=== PATIENT | male | born 1985 | race Caucasian/White ===

== ENCOUNTER 2016-11-22 13:50 | Emergency (ER) | payer OTHER ==
[~2016-11-22] VITALS: Ht 167.6 cm; Wt 95.3 kg
[2016-11-22 13:55] VITALS: BP 142/79
--- NOTE | 2016-11-22 14:32 | NUR ---
CALLED [place] [employer] TO VERIFY PATIENT REPORTED INCIDENT TO [facility].
--- NOTE | 2016-11-22 14:51 | NUR ---
Patient ambulated to bed 04.
--- NOTE | 2016-11-22 14:55 | NUR ---
31/M PRESENT TO ER C/O RIGHT LEG PAIN AND LEFT HIP PAIN x SINCE 11/16/2016; DENIES N/V/D; SKIN IS PINK/WARM/DRY; AAOX4 WITH EVEN AND STEADY GAIT; LUNGS CLEAR BL; HR EVEN AND REGULAR; PT DENIES ANY FEVER, CP, SOB, OR COUGH AT THIS TIME; PATIENT STATES PAIN OF 5/10 AT THIS TIME; VSS; PATIENT POSITIONED FOR COMFORT; HOB ELEVATED; BEDRAILS UP X2; BED DOWN. ER MD MADE AWARE OF PT STATUS.
--- NOTE | 2016-11-22 15:05 | NUR ---
[place] [employer] AT BEDSIDE
--- NOTE | 2016-11-22 15:29 | NUR ---
DR MARQUEZ ASSESSING THE PT AT BEDSIDE
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
--- NOTE | 2016-11-22 16:30 | NUR ---
[place] [employer] AT BEDSIDE INTERVIEWING AAO PT
[2016-11-22 17:01] VITALS: BP 151/96
--- NOTE | 2016-11-22 17:01 | NUR ---
Patient discharged with v/s stable. Written and verbal after care instructions given and explained. Patient alert, oriented and verbalized understanding of instructions. Ambulatory with steady gait. All questions addressed prior to discharge. ID band removed. Patient advised to follow up with PMD. Rx of BACTRIM, MOTRIN given. Patient educated on indication of medication including possible reaction and side effects. Opportunity to ask questions provided and answered.
== END 2016-11-22 17:01 | disposition home or self-care (01) ==
LOC: MED 13:50
DX: S81.801A Unspecified open wound, right lower leg, initial encounter (principal); S71.102A Unspecified open wound, left thigh, initial encounter; I10 Essential (primary) hypertension; W34.00XA Accidental discharge from unspecified firearms or gun, initial encounter; Y93.89 Activity, other specified; Y92.89 Other specified places as the place of occurrence of the external cause; Y99.8 Other external cause status

== ENCOUNTER 2018-06-27 16:10 | Emergency (ER) | payer OTHER ==
[~2018-06-27] VITALS: Ht 165.1 cm; Wt 59.0 kg
[2018-06-27 16:19] VITALS: BP 117/96
[2018-06-27] MEDS ORDERED: ACETAMINOPHEN EXTRA STRENGTH 500 MG TAB PO ONE (16:20)
[2018-06-27] MEDS ORDERED: IBUPROFEN 400 MG TAB PO ONE (16:20)
[2018-06-27] MEDS ORDERED: KETOROLAC 30 MG/ML VIAL IVP ONE (17:45)
[2018-06-27] MEDS ORDERED: ONDANSETRON 4 MG/2 ML VIAL IVP ONE (17:45)
[2018-06-27] MEDS ORDERED: NACL 0.9% 2,000 ML IV SCH (17:45)
[2018-06-27] MEDS ORDERED: cefTRIAXone 1,000 MG in DEXT 5% MINI-BAG PLUS 50 ML IV ONE (17:45)
[2018-06-27] MEDS ORDERED: cefTRIAXone 1,000 MG VIAL ONE (18:02)
[2018-06-27 18:39] LABS: BASOPHILS # (AUTO) 0.1 K/uL (0.00-0.22); BASOPHILS % (AUTO) 0.7 % (0.0-2.0); EOSINOPHILS # (AUTO) 0.1 K/uL (0-0.4); EOSINOPHILS % (AUTO) 0.7 % (0.0-4.0); HEMATOCRIT 45.1 % (36-52); HEMOGLOBIN 14.9 g/dL (12.0-18.0); LYMPHOCYTES # (AUTO) 0.5 K/uL (2.0-11.5); LYMPHOCYTES % (AUTO) 5.4 % (20.5-51.1); MEAN CORPUSCULAR HEMOGLOBIN 29 pg (27-31); MEAN CORPUSCULAR HGB CONC 33 g/dL (33-37); MEAN CORPUSCULAR VOLUME 88.7 fL (80-94); MONOCYTES # (AUTO) 0.5 K/uL (0.8-1.0); MONOCYTES % (AUTO) 5.9 % (1.7-9.3); NEUTROPHILS # (AUTO) 7.7 K/uL (1.8-7.7); NEUTROPHILS % (AUTO) 87.3 % (42.2-75.2); PLATELET COUNT (AUTO) 233 K/uL (140-450); RED BLOOD CELL COUNT(AUTO) 5.08 MIL/uL (4.20-6.10); RED CELL DISTRIBUTION WIDTH 12.9 % (11.6-13.7); WHITE BLOOD COUNT (AUTO) 8.8 K/uL (4.8-10.8)
[2018-06-27] MEDS ORDERED: LEVOFLOXACIN 500 MG/D5W PREMIX 100 ML IV ONE (18:55)
[2018-06-27 19:27] LABS: AMYLASE 43 U/L (25-115); LIPASE 100 U/L (73-393)
[2018-06-27 19:35] LABS: ANION GAP 15.8 (8-16); POTASSIUM 3.8 mmol/L (3.5-5.1)
[2018-06-27 19:36] LABS: CREATININE 1.1 mg/dL (0.7-1.3)
[2018-06-27 19:38] LABS: PROTHROMBIN TIME 10.2 secs (10.8-13.4)
[2018-06-27 19:44] LABS: ALBUMIN 3.3 g/dL (3.4-5.0); TOTAL BILIRUBIN 0.6 mg/dL (0.0-1.0)
[2018-06-27 20:06] LABS: BARBITURATE, URINE NEG. ng/ml (NEG <=200); BENZODIAZEPINE, URINE NEG. ng/mL (NEG <=200); CANNABINOID, URINE NEG. ng/mL (NEG <=50); COCAINE, URINE NEG. ng/mL (NEG <=300); OPIATE, URINE NEG. ng/mL (NEG <=2000); PHENCYCLIDINE SCREEN,URINE NEG. ng/mL (NEG <=25)
[2018-06-27 20:31] LABS: APPEARANCE,URINE Y (CLEAR)
[2018-06-27 20:32] LABS: BILIRUBIN,URINE NEGATIVE (NEGATIVE); BLOOD, URINE NEGATIVE (NEGATIVE); COLOR,URINE C (YELLOW); LEUKOCYTE ESTERASE ,URINE NEGATIVE (NEGATIVE); NITRITE, URINE NEGATIVE (NEGATIVE); PH,URINE 6.5 (5.0-9.0); UGLUCOSE NEGATIVE (NEGATIVE)
[2018-06-27] MEDS ORDERED: MORPHINE SULFATE 2 MG/ML SYR IVP ONE (20:35)
[2018-06-27] MEDS ORDERED: MORPHINE SULFATE 4 MG/ML SYR ONE (21:12)
[2018-06-27 21:51] VITALS: BP 129/69
== END 2018-06-27 21:52 | disposition home or self-care (01) ==
LOC: MED 16:10
DX: J18.9 Pneumonia, unspecified organism (principal); I10 Essential (primary) hypertension
CPT/HCPCS: 36415; 36600; 71045; 80053; 80305; 81003; 82150; 82550; 82803; 83605; 83690; 83880; 84484; 85025; 85610; 85730; 87040; 87086; 87804; 96365; 96367; 96375; 99285; J0696; J1885; J1956; J2270; J2405; J7030; Q0092

== ENCOUNTER 2019-01-12 09:25 | Emergency (ER) | payer OTHER ==
[~2019-01-12] VITALS: Ht 170.2 cm; Wt 95.3 kg
--- NOTE | 2019-01-12 09:34 | NUR ---
PT AMBULATED TO ER BED 08
[2019-01-12 09:36] VITALS: BP 147/85
--- NOTE | 2019-01-12 09:39 | NUR ---
BIB SELF C/O right lower back pain S/P LIFTING HEAVY BRICKS APPROX 90 LBS X TODAY. DENIES DYSURIA. PATIENT STATES PAIN OF 10/10 AT THIS TIME; PATIENT POSITIONED FOR COMFORT; HOB ELEVATED; BEDRAILS UP X1; BED DOWN. ER MD MADE AWARE OF PT STATUS.
--- NOTE | 2019-01-12 09:49 | NUR ---
Patient being evaluated by DR DAILY at bedside.
[2019-01-12] MEDS ORDERED: KETOROLAC 60 MG/2 ML VIAL IM ONE (09:55)
[2019-01-12 10:54] VITALS: BP 129/78
--- NOTE | 2019-01-12 10:54 | NUR ---
Patient discharged with v/s stable. Written and verbal after care instructions given and explained. Patient alert, oriented and verbalized understanding of instructions. Ambulatory with steady gait. All questions addressed prior to discharge. ID band removed. Patient advised to follow up with PMD. Rx of NAPROSYN & NORCO given. Patient educated on indication of medication including possible reaction and side effects. Opportunity to ask questions provided and answered.
== END 2019-01-12 10:54 | disposition home or self-care (01) ==
LOC: MED 09:25
DX: S39.012A Strain of muscle, fascia and tendon of lower back, initial encounter (principal); I10 Essential (primary) hypertension; X50.0XXA Overexertion from strenuous movement or load, initial encounter; Y93.89 Activity, other specified; Y92.009 Unspecified place in unspecified non-institutional (private) residence as the place of occurrence of the external cause; Y99.8 Other external cause status
CPT/HCPCS: 81002; 96372; 99283; J1885

== ENCOUNTER 2019-03-16 19:13 | Emergency (ER) | payer OTHER ==
[~2019-03-16] VITALS: Ht 170.2 cm; Wt 95.3 kg
[2019-03-16 19:28] VITALS: BP 151/91
--- NOTE | 2019-03-16 19:40 | NUR ---
34/M PRESENTED TO ER AMBULATORY. STEADY GAIT. AWAKE ALERT. C/O LEFT MID LOWER BACK PAIN 04/03. STATES HE PAIN STARTED AFTER PICKING UP HEAVY BRICKS ON 03/10/19. SHARP PAIN PROVOKED WHEN BREATHING OR MOVEMENT.EVEN UNLABORED BREATHING. NO SIGNS OF DISTRESS. DID NOT TAKE MEDICATIONS TO ALLEVIATE SYMPTOMS. NKA. WILL CONTINUE TO MONITOR.
--- NOTE | 2019-03-16 19:46 | NUR ---
PT TAKEN TO BED 6
--- NOTE | 2019-03-16 19:54 | NUR ---
DR MARQUEZ AT BEDSIDE.
[2019-03-16] MEDS ORDERED: KETOROLAC 30 MG/ML VIAL IM ONE (20:00)
--- NOTE | 2019-03-16 20:42 | NUR ---
X-Ray at bedside.
[2019-03-16 21:05] VITALS: BP 148/84
--- NOTE | 2019-03-16 21:05 | NUR ---
Patient discharged with v/s stable. Written and verbal after care instructions given and explained. Patient alert, oriented and verbalized understanding of instructions. Ambulatory with steady gait. All questions addressed prior to discharge. ID band removed. Patient advised to follow up with PMD. Rx of MOTRIN AND ROBAXIN given. Patient educated on indication of medication including possible reaction and side effects. Opportunity to ask questions provided and answered.
== END 2019-03-16 21:05 | disposition home or self-care (01) ==
LOC: MED 19:13
DX: S39.012A Strain of muscle, fascia and tendon of lower back, initial encounter (principal); I10 Essential (primary) hypertension; X50.0XXA Overexertion from strenuous movement or load, initial encounter; Y93.89 Activity, other specified; Y92.89 Other specified places as the place of occurrence of the external cause; Y99.8 Other external cause status
CPT/HCPCS: 71045; 96372; 99283; J1885; Q0092

== ENCOUNTER 2019-10-13 07:45 | Emergency (ER) | payer OTHER ==
[~2019-10-13] VITALS: Ht 170.2 cm; Wt 95.3 kg
[2019-10-13 07:54] VITALS: BP 138/88
--- NOTE | 2019-10-13 07:59 | NUR ---
PT TO ER BED 7
--- NOTE | 2019-10-13 08:03 | NUR ---
34 Y/O MALE C/O DRY COUGH, CONGESTION, AND BODY ACHES X 2 DAYS. STATES 8/10 GENERALIZED BODY ACHES. DENIES FEVER/CHILLS. RR EVEN AND UNLABORED. STATES BILATERAL EARS ARE ITCHY, DENIES DRAINAGE. NO N/V/D. TOOK TYLENOL AT 0400 WITH MINIMAL RELIEF OF ACHES. PT SITTING UPRIGHT CALM AND PLEASANT. VSS. MEDHX: DENIES ALLERGIES: NKA
--- NOTE | 2019-10-13 08:14 | NUR ---
DR MITCHELL EXAMINING PT.
[2019-10-13 08:42] VITALS: BP 127/83
--- NOTE | 2019-10-13 08:42 | NUR ---
Patient discharged with v/s stable. Written and verbal after care instructions given and explained. Patient alert, oriented and verbalized understanding of instructions. Ambulatory with steady gait. All questions addressed prior to discharge. ID band removed. Patient advised to follow up with PMD. Rx of TAMIFLU IBUPROFEN, AND CODEINE/PROMETHAZINE given. Patient educated on indication of medication including possible reaction and side effects. Opportunity to ask questions provided and answered.
== END 2019-10-13 08:42 | disposition home or self-care (01) ==
LOC: MED 07:45
DX: R05 Cough (principal); R09.89 Other specified symptoms and signs involving the circulatory and respiratory systems; I10 Essential (primary) hypertension
CPT/HCPCS: 99283

== ENCOUNTER 2020-06-09 05:50 | Emergency (ER) | payer OTHER ==
[~2020-06-09] VITALS: Ht 170.2 cm; Wt 100.8 kg
[2020-06-09 05:57] VITALS: BP 154/104
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
--- NOTE | 2020-06-09 06:18 | NUR ---
RADIOLOGY AT BEDSIDE
[2020-06-09] MEDS ORDERED: KETOROLAC 30 MG/ML VIAL IM ONE (06:40)
--- NOTE | 2020-06-09 06:45 | NUR ---
RIGHT KNEE IMMOBILIZER PLACED. CRUTCH TRAINING PROVIDED WITH RETURN DEMONSTRATION.
--- NOTE | 2020-06-09 07:14 | NUR ---
Patient discharged with v/s stable. Written and verbal after care instructions given and explained. Patient alert, oriented and verbalized understanding of instructions. Ambulatory with steady gait with crutches. All questions addressed prior to discharge. ID band removed. Patient advised to follow up with PMD. Rx of naprosyn given. Patient educated on indication of medication including possible reaction and side effects. Opportunity to ask questions provided and answered.
== END 2020-06-09 07:14 | disposition home or self-care (01) ==
LOC: MED 05:50
DX: S83.91XA Sprain of unspecified site of right knee, initial encounter (principal); I10 Essential (primary) hypertension; X58.XXXA Exposure to other specified factors, initial encounter; Y93.39 Activity, other involving climbing, rappelling and jumping off; Y92.89 Other specified places as the place of occurrence of the external cause; Y99.8 Other external cause status
CPT/HCPCS: 29505; 73562; 96372; 99283; J1885; Q0092

== ENCOUNTER 2020-08-29 05:41 | Emergency (ER) | payer OTHER ==
[~2020-08-29] VITALS: Ht 170.2 cm; Wt 99.8 kg
[2020-08-29 05:45] VITALS: BP 150/90
--- NOTE | 2020-08-29 05:48 | NUR ---
TO LOBBY A/W BED AMBULATORY
--- NOTE | 2020-08-29 06:00 | NUR ---
SEEN AND EXAMINED BY ALYSSA
[2020-08-29] MEDS ORDERED: KETOROLAC 60 MG/2 ML VIAL IM ONE (06:05)
[2020-08-29] MEDS ORDERED: PENICILLIN G BENZATHINE L-A 1.2 MU/2 ML SYR IM ONE (06:05)
--- NOTE | 2020-08-29 06:05 | NUR ---
MEDICATED PER ERMDS ORDER, TOLERATED WELL.
[2020-08-29 06:40] VITALS: BP 132/78
--- NOTE | 2020-08-29 06:40 | NUR ---
Patient discharged with v/s stable. Written and verbal after care instructions given and explained. Patient alert, oriented and verbalized understanding of instructions. Ambulatory with steady gait. All questions addressed prior to discharge. ID band removed. Patient advised to follow up with PMD. Rx of MOTRIN, PREDNISONE given. Patient educated on indication of medication including possible reaction and side effects. Opportunity to ask questions provided and answered.
== END 2020-08-29 06:40 | disposition home or self-care (01) ==
LOC: MED 05:41
DX: J02.0 Streptococcal pharyngitis (principal)
CPT/HCPCS: 96372; 99284; J0561; J1885

== ENCOUNTER 2020-10-17 09:16 | Emergency (ER) | payer OTHER ==
[~2020-10-17] VITALS: Ht 170.2 cm; Wt 103.6 kg
[2020-10-17 09:20] VITALS: BP 159/103
--- NOTE | 2020-10-17 09:27 | NUR ---
AMBULATED TO BED 7
--- NOTE | 2020-10-17 10:01 | NUR ---
Patient discharged with v/s stable. Written and verbal after care instructions given and explained. Patient alert, oriented and verbalized understanding of instructions. Ambulatory with steady gait. All questions addressed prior to discharge. ID band removed. Patient advised to follow up with PMD. Rx of PCN given. Patient educated on indication of medication including possible reaction and side effects. Opportunity to ask questions provided and answered.
== END 2020-10-17 10:01 | disposition home or self-care (01) ==
LOC: MED 09:16
DX: J03.90 Acute tonsillitis, unspecified (principal)
CPT/HCPCS: 99283

== ENCOUNTER 2020-11-16 11:06 | Emergency (ER) | payer OTHER ==
[~2020-11-16] VITALS: Ht 170.2 cm; Wt 102.1 kg
[2020-11-16 11:13] VITALS: BP 130/90
--- NOTE | 2020-11-16 11:18 | NUR ---
PATIENT AMBULATED WITH STEADY GAIT TO BED 8
--- NOTE | 2020-11-16 11:44 | NUR ---
35 Y/O MALE BIB SELF C/O ABDOMINAL PAIN X 4 DAYS. PAIN 10/10, INTERMITTENT, LOCAL, SHARP. DENIES CURRENT STATES NAUSEA/VOMITING/DIARRHEA, STATES CRAMPING PRESENT. NORMOACTIVE BOWEL SOUNDS THROUGHOUT. PT STATES SYMPTOMS BEGAN AFTER EATING AT [employer]; NO PREVIOUS HX OF SYMPTOMS. AO4, BREATHING EVEN AND UNLABORED, SKIN WARM AND DRY. BED IN LOWEST POSITION, LOCKED, X1 SIDERAIL UP. PMH - DENIED NKA
[2020-11-16] MEDS ORDERED: KETOROLAC 60 MG/2 ML VIAL IM ONE (12:10)
[2020-11-16] MEDS ORDERED: IBUP-2213 PO (12:13)
[2020-11-16] MEDS ORDERED: ONDA8TAB87 PO (12:13)
[2020-11-16] MEDS ORDERED: LOPE-143 PO (12:13)
--- NOTE | 2020-11-16 12:33 | NUR ---
Patient discharged with v/s stable. Written and verbal after care instructions given and explained. Patient alert, oriented and verbalized understanding of instructions. Ambulatory with steady gait. All questions addressed prior to discharge. ID band removed. Patient advised to follow up with PMD. Rx of IBUPROFEN, ONDANSETRON, AND LOPERAMIDE given. Patient educated on indication of medication including possible reaction and side effects. Opportunity to ask questions provided and answered.
[2020-11-16 12:35] VITALS: BP 130/90
== END 2020-11-16 12:33 | disposition home or self-care (01) ==
LOC: MED 11:06
DX: R10.13 Epigastric pain (principal); R19.7 Diarrhea, unspecified
CPT/HCPCS: 96372; 99283; J1885

== ENCOUNTER 2021-05-08 07:39 | Emergency (ER) | payer OTHER ==
[~2021-05-08] VITALS: Ht 170.2 cm; Wt 95.3 kg
[~2021-05-08 07:39] MED LIST: IBUP-2213 PO; LOPE-143 PO; ONDA8TAB87 PO
[2021-05-08 07:53] VITALS: BP 163/97
--- NOTE | 2021-05-08 07:55 | NUR ---
TENT 1.
--- NOTE | 2021-05-08 08:27 | NUR ---
C/O 8/10 R KNEE PAIN & SWELLING X 5 DAYS. DENIES RECENTLY TRAUMA/INJURY. PMH: DENIES
[2021-05-08] MEDS ORDERED: ACET-2619 PO (08:44)
[2021-05-08] MEDS ORDERED: IBUP-2213 PO (08:44)
--- NOTE | 2021-05-08 08:56 | NUR ---
PT HAD SPLINT & CRUTCHES AT HOME.
[2021-05-08 08:58] VITALS: BP 163/97
--- NOTE | 2021-05-08 08:58 | NUR ---
Patient discharged with v/s stable. Written and verbal after care instructions given and explained. Patient alert, oriented and verbalized understanding of instructions. Ambulatory with . All questions addressed prior to discharge. ID band removed. Patient advised to follow up with PMD. Rx of TYLENOL &IBUPROFEN given. Patient educated on indication of medication including possible reaction and side effects. Opportunity to ask questions provided and answered.
== END 2021-05-08 08:58 | disposition home or self-care (01) ==
LOC: MED 07:39
DX: M25.561 Pain in right knee (principal); Z79.1 Long term (current) use of non-steroidal anti-inflammatories (NSAID); Z79.899 Other long term (current) drug therapy
CPT/HCPCS: 99282

== ENCOUNTER 2021-06-19 09:32 | Emergency (ER) | payer OTHER ==
[~2021-06-19] VITALS: Ht 170.2 cm; Wt 95.3 kg
[~2021-06-19 09:32] MED LIST changes: +ACET-2619 PO
[2021-06-19 10:05] VITALS: BP 151/92
--- NOTE | 2021-06-19 10:05 | NUR ---
TENT 2
--- NOTE | 2021-06-19 10:07 | NUR ---
BIB SELF C/O 05/04 RIGHT EAR PAIN, SORE THROAT X 2DAYS. DENIES N/V/D; SKIN IS PINK/WARM/DRY; AAOX4 WITH EVEN AND STEADY GAIT; LUNGS CLEAR BL; HR EVEN AND REGULAR; PT DENIES ANY FEVER, CP, SOB, OR COUGH AT THIS TIME.
[2021-06-19] MEDS ORDERED: IBUP-2213 PO (10:53)
[2021-06-19] MEDS ORDERED: FLONAS NS (10:53)
--- NOTE | 2021-06-19 10:58 | NUR ---
Note radha in EDM - 06/19/21 at 1112 by MED1 Patient discharged with v/s stable. Written and verbal after care instructions given and explained. Patient alert, oriented and verbalized understanding of instructions. Ambulatory with steady gait. All questions addressed prior to discharge. ID band removed. Patient advised to follow up with PMD. Rx of FLONASE NASAL & IBUPROFEN given. Patient educated on indication of medication including possible reaction and side effects. Opportunity to ask questions provided and answered.
[2021-06-19 11:11] VITALS: BP 134/86
--- NOTE | 2021-06-19 11:11 | NUR ---
Patient discharged with v/s stable. Written and verbal after care instructions given and explained. Patient alert, oriented and verbalized understanding of instructions. Ambulatory with steady gait. All questions addressed prior to discharge. ID band removed. Patient advised to follow up with PMD. Rx of FLONASE NASAL & IBUPROFEN given. Patient educated on indication of medication including possible reaction and side effects. Opportunity to ask questions provided and answered.
== END 2021-06-19 11:11 | disposition home or self-care (01) ==
LOC: MED 09:32
DX: R07.0 Pain in throat (principal); H92.01 Otalgia, right ear
CPT/HCPCS: 99283

== ENCOUNTER 2021-07-25 07:36 | Emergency (ER) | payer OTHER, SELFPAY ==
[~2021-07-25] VITALS: Ht 170.2 cm; Wt 95.3 kg
[~2021-07-25 07:36] MED LIST changes: +FLONAS NS
[2021-07-25 07:55] VITALS: BP 147/100
--- NOTE | 2021-07-25 08:05 | NUR ---
PT C/O SORE THROAT AND HEADACHE X3 DAYS. DENIES SOB.
--- NOTE | 2021-07-25 08:06 | NUR ---
DR CAMPBELL AT BEDSIDE
--- NOTE | 2021-07-25 08:27 | NUR ---
Patient discharged with v/s stable. Written and verbal after care instructions given and explained. Patient verbalized understanding. Ambulatory with steady gait. All questions addressed prior to discharge. Advised to follow up with PMD.
== END 2021-07-25 08:27 | disposition home or self-care (01) ==
LOC: MED 07:36
DX: J06.9 Acute upper respiratory infection, unspecified (principal)
CPT/HCPCS: 99283

== ENCOUNTER 2022-02-08 06:58 | Emergency (ER) | payer OTHER ==
[~2022-02-08] VITALS: Ht 170.2 cm; Wt 96.6 kg
[2022-02-08 07:03] VITALS: BP 138/91
--- NOTE | 2022-02-08 07:15 | NUR ---
PT AMBULATED TO BED 08.
--- NOTE | 2022-02-08 07:23 | NUR ---
Dr. Randolph evaluating patient at bedside.
--- NOTE | 2022-02-08 07:59 | NUR ---
36 y/o male bib self with c/o right ankle pain. Patient said "he twisted his ankle and felt it pop." Patient is ambulating with crutches. Patient is complaining of pain 05/04. Medical History: Denies NKDA
[2022-02-08] MEDS ORDERED: KETOROLAC 30 MG/ML VIAL IM ONE (08:05)
[2022-02-08 08:50] VITALS: BP 142/85
--- NOTE | 2022-02-08 08:51 | NUR ---
Patient discharged with v/s stable. Written and verbal after care instructions given. Patient verbalized understanding. Ambulatory with crutches steady gait. All questions addressed prior to discharge. Advised to follow up with PMD.
--- NOTE | 2022-02-08 09:14 | NUR ---
The patient's care was reviewed and supervised by Maribell Killian, RN, RN.
== END 2022-02-08 08:51 | disposition home or self-care (01) ==
LOC: MED 06:58
DX: S93.401A Sprain of unspecified ligament of right ankle, initial encounter (principal); W18.39XA Other fall on same level, initial encounter; Y92.89 Other specified places as the place of occurrence of the external cause; Y93.89 Activity, other specified; Y99.8 Other external cause status
CPT/HCPCS: 73610; 96372; 99283; J1885; Q0092

== ENCOUNTER 2022-04-22 16:05 | Emergency (ER) | payer OTHER ==
[~2022-04-22] VITALS: Ht 170.2 cm; Wt 122.5 kg
[2022-04-22 16:09] VITALS: BP 145/94
--- NOTE | 2022-04-22 17:30 | NUR ---
RECEIVED CALL FROM ER ADMITTING THAT PT LEFT. PATIENT LEFT WITHOUT BEING SEEN BY DR. GARCIA. NO FURTHER CARE PROVIDED FOR PATIENT.
== END 2022-04-22 17:30 | disposition left against medical advice (07) ==
LOC: MED 16:05
DX: R07.9 Chest pain, unspecified (principal); Z53.21 Procedure and treatment not carried out due to patient leaving prior to being seen by health care provider
CPT/HCPCS: 93005

== ENCOUNTER 2022-04-27 08:53 | Emergency (ER) | payer OTHER ==
[~2022-04-27] VITALS: Ht 170.2 cm; Wt 95.0 kg
[2022-04-27 09:10] VITALS: BP 157/102
--- NOTE | 2022-04-27 09:30 | NUR ---
SIN AT BEDSIDE FOR EVALUATION
--- NOTE | 2022-04-27 09:35 | NUR ---
37YO MALE PT C/O SORE THROAT, HEADACHE AND EAR PAIN X3DAYS. PT PRESENTS WITH NON PRODUCTIVE COUGH , MILD RELIEF AFTER TYLENOL. THROAT AND EARS PRESENT CLEAR. PT WAS SEEN IN ER ON FRIDAY FOR CHEST PAIN - LWBS. STATES EPISODES OF SHARP 7/10 CHEST PAIN W/ OCCASIONAL NUMBING IN L ARM, DENIES AT THIS TIME. DENIES N/V/D, FEVER, CHILLS OR SOB.DENIES SEEING PCP AND EXPRESSED CONCERN OF CARDIAC FAMILY HX. PT AAOX4, RESPIRATIONS EVEN AND UNLABORED. PT ON SOFTWARE TEAM LEADER, BED AT LOWEST POSITION, BED RAILS UP X1. HX: HTN, DM NKA
[2022-04-27] MEDS ORDERED: IBUPROFEN 800 MG TAB PO ONE (09:40)
[2022-04-27] MEDS ORDERED: DEXAMETHASONE 4 MG/ML VIAL PO ONE (09:40)
--- NOTE | 2022-04-27 09:50 | NUR ---
pt swabbed for covid(estefania) and strep. handed to medical laboratory specialist
--- NOTE | 2022-04-27 10:16 | NUR ---
XRAY AT BEDSIDE
[2022-04-27 10:24] LABS: BASOPHILS # (AUTO) 0.1 K/uL (0.00-0.22); BASOPHILS % (AUTO) 0.8 % (0.0-2.0); EOSINOPHILS # (AUTO) 0.2 K/uL (0-0.4); EOSINOPHILS % (AUTO) 2.5 % (0.0-4.0); HEMATOCRIT 47.2 % (36-52); LYMPHOCYTES # (AUTO) 1.4 K/uL (2.0-11.5); LYMPHOCYTES % (AUTO) 19.6 % (20.5-51.1); MEAN CORPUSCULAR HEMOGLOBIN 30 pg (27-31); MEAN CORPUSCULAR HGB CONC 34 g/dL (33-37); MEAN CORPUSCULAR VOLUME 88.9 fL (80-94); MONOCYTES # (AUTO) 0.7 K/uL (0.8-1.0); MONOCYTES % (AUTO) 10.2 % (1.7-9.3); NEUTROPHILS # (AUTO) 4.6 K/uL (1.8-7.7); NEUTROPHILS % (AUTO) 66.9 % (42.2-75.2); PLATELET COUNT (AUTO) 261 K/uL (140-450); RED BLOOD CELL COUNT(AUTO) 5.31 MIL/uL (4.20-6.10); WHITE BLOOD COUNT (AUTO) 6.9 K/uL (4.8-10.8)
[2022-04-27 10:47] LABS: ALBUMIN 3.9 g/dL (3.4-5.0); ANION GAP 10.2 (8-16); ASPARTATE AMINOTRANSFERASE 17 U/L (15-37); CARBON DIOXIDE 29.9 mmol/L (21-32); CHLORIDE 104 mmol/L (98-107); CREATININE 0.9 mg/dL (0.6-1.3); GFR ARICAN-AMERICAN 121 mL/min (>90); GLUCOSE 94 mg/dL (74-106); POTASSIUM 4.1 mmol/L (3.5-5.1); SODIUM SERUM 140 mmol/L (136-145); TOTAL BILIRUBIN 0.7 mg/dL (0.0-1.0); UREA NITROGEN, BLOOD 13 mg/dL (7-18)
[2022-04-27 11:22] VITALS: BP 126/82
--- NOTE | 2022-04-27 12:07 | NUR ---
Patient discharged with v/s stable. Written and verbal after care instructions FOR VIRAL ILLNESS given and explained. Patient verbalized understanding. Ambulatory with steady gait. All questions addressed prior to discharge. Advised to follow up with PMD.
--- NOTE | 2022-04-27 12:16 | NUR ---
The patient's care was reviewed and supervised by ED Agency Nurse 9, RN, RN.
== END 2022-04-27 12:07 | disposition home or self-care (01) ==
LOC: MED 08:53
DX: B34.9 Viral infection, unspecified (principal); Z20.822 Contact with and (suspected) exposure to COVID-19; J02.9 Acute pharyngitis, unspecified; R03.0 Elevated blood-pressure reading, without diagnosis of hypertension; Z79.899 Other long term (current) drug therapy
CPT/HCPCS: 36415; 71045; 80053; 84484; 85025; 87081; 87426; 93005; 99285; J1100; Q0092

== ENCOUNTER 2022-08-10 14:52 | Emergency (ER) | payer OTHER ==
[~2022-08-10] VITALS: Ht 170.2 cm; Wt 98.0 kg
[2022-08-10 15:13] VITALS: BP 150/92
--- NOTE | 2022-08-10 15:20 | NUR ---
COVID, FLU SWABS DONE.
--- NOTE | 2022-08-10 15:22 | NUR ---
BIB SELF C/O SORE THROAT, COUGH, RUNNY NOSE X YESTERDAY. COVID TESTED NEGATIVE YESTERDAY.
[2022-08-10] MEDS ORDERED: PENI500T20 PO (15:25)
[2022-08-10] MEDS ORDERED: PRED20TA5 PO (15:25)
[2022-08-10] MEDS ORDERED: IBUP-2213 PO (15:25)
--- NOTE | 2022-08-10 15:40 | NUR ---
Patient discharged with v/s stable. Written and verbal after care instructions given and explained. Patient alert, oriented and verbalized understanding of instructions. Ambulatory with steady gait. All questions addressed prior to discharge. ID band removed. Patient advised to follow up with PMD. Rx of PENICILLIN, MOTRIN given. Patient educated on indication of medication including possible reaction and side effects. Opportunity to ask questions provided and answered.
== END 2022-08-10 15:40 | disposition home or self-care (01) ==
LOC: MED 14:52
DX: J02.0 Streptococcal pharyngitis (principal); Z20.822 Contact with and (suspected) exposure to COVID-19; Z79.899 Other long term (current) drug therapy
CPT/HCPCS: 99283

== ENCOUNTER 2022-11-01 05:05 | Emergency (ER) | payer OTHER ==
[~2022-11-01] VITALS: Ht 170.2 cm; Wt 96.2 kg
[~2022-11-01 05:05] MED LIST changes: +PENI500T20 PO; +PRED20TA5 PO
[2022-11-01 05:10] VITALS: BP 143/90
--- NOTE | 2022-11-01 05:10 | NUR ---
TO LOBBY A/W BED AMBULATORY
--- NOTE | 2022-11-01 05:20 | NUR ---
PT RC'D IN BED 6. AWAITING ORDERS.
--- NOTE | 2022-11-01 05:25 | NUR ---
PT ASSESSMENT DONE AT BEDSIDE 6. PT STATES THAT HE HAS HAD A WORSENING SORE THROAT FOR THE LAST 3 DAYS. PT STATES THAT YESTERDAY HE LOST HIS VOICE FELT THE NEED TO COME IN. AWAITING ORDERS.
[2022-11-01] MEDS ORDERED: DEXAMETHASONE 10 MG/ML VIAL PO ONE (06:30)
[2022-11-01] MEDS ORDERED: KETOROLAC 30 MG/ML VIAL IM ONE (06:30)
[2022-11-01] MEDS ORDERED: AMOX500C25 PO (06:32)
[2022-11-01] MEDS ORDERED: NAPR-54 PO (06:32)
[2022-11-01] MEDS ORDERED: ACET-10509 PO (06:32)
[2022-11-01 06:40] VITALS: BP 143/90
--- NOTE | 2022-11-01 06:40 | NUR ---
Patient discharged with v/s stable. Written and verbal after care instructions given and explained. Patient alert, oriented and verbalized understanding of instructions. Ambulatory with steady gait. All questions addressed prior to discharge. ID band removed. Patient advised to follow up with PMD. Rx of NAPROXEN, ACETAMINOPHEN & AMOXICILLIN given. Patient educated on indication of medication including possible reaction and side effects. Opportunity to ask questions provided and answered.
== END 2022-11-01 06:40 | disposition home or self-care (01) ==
LOC: MED 05:05
DX: J02.0 Streptococcal pharyngitis (principal); Z79.899 Other long term (current) drug therapy
CPT/HCPCS: 87081; 96372; 99283; J1100; J1885

== ENCOUNTER 2023-04-09 08:51 | Emergency (ER) | payer OTHER ==
[~2023-04-09] VITALS: Ht 170.2 cm; Wt 93.9 kg
[~2023-04-09 08:51] MED LIST changes: +ACET-10509 PO; +AMOX500C25 PO; +NAPR-54 PO
[2023-04-09 09:06] VITALS: BP 140/90; PULSE 76; RESP 16; TEMP 98.1; O2SAT 98
[2023-04-09 09:40] LABS: BASOPHILS # (AUTO) 0.1 K/uL (0.00-0.22); BASOPHILS % (AUTO) 1.1 % (0.0-2.0); EOSINOPHILS # (AUTO) 0.2 K/uL (0-0.4); HEMATOCRIT 45.9 % (36-52); HEMOGLOBIN 15.4 g/dL (12.0-18.0); LYMPHOCYTES # (AUTO) 2.1 K/uL (2.0-11.5); LYMPHOCYTES % (AUTO) 31.1 % (20.5-51.1); MEAN CORPUSCULAR HEMOGLOBIN 30 pg (27-31); MEAN CORPUSCULAR HGB CONC 34 g/dL (33-37); MEAN CORPUSCULAR VOLUME 88.3 fL (80-94); MONOCYTES # (AUTO) 0.7 K/uL (0.8-1.0); MONOCYTES % (AUTO) 9.8 % (1.7-9.3); NEUTROPHILS # (AUTO) 3.7 K/uL (1.8-7.7); PLATELET COUNT (AUTO) 295 K/uL (140-450); RED CELL DISTRIBUTION WIDTH 13.1 % (11.6-13.7); WHITE BLOOD COUNT (AUTO) 6.7 K/uL (4.8-10.8)
[2023-04-09 09:54] LABS: ALBUMIN 3.7 g/dL (3.4-5.0); ANION GAP 11.5 (8-16); CALCIUM 8.8 mg/dL (8.5-10.1); CARBON DIOXIDE 27.2 mmol/L (21-32); POTASSIUM 3.7 mmol/L (3.5-5.1); TOTAL BILIRUBIN 0.5 mg/dL (0.0-1.0); TOTAL PROTEIN, SERUM 7.3 g/dL (6.4-8.2)
[2023-04-09 09:58] LABS: INR 0.97 (0.8-1.2); PARTIAL THROMBOPLASTIN TIME 28.1 secs (22-35.6); PROTHROMBIN TIME 10.2 secs (10.8-13.4)
[2023-04-09] MEDS: ASPIRIN 81 MG TAB.CHEW PO ONE (09:59)
[2023-04-09 12:15] VITALS: O2SAT 97
[2023-04-09 12:25] VITALS: BP 132/71; PULSE 61; RESP 16
== END 2023-04-09 12:25 | disposition home or self-care (01) ==
LOC: MED 08:51
DX: R07.89 Other chest pain (principal); F41.9 Anxiety disorder, unspecified; F43.0 Acute stress reaction; I10 Essential (primary) hypertension; I25.10 Atherosclerotic heart disease of native coronary artery without angina pectoris; I48.91 Unspecified atrial fibrillation; Z79.899 Other long term (current) drug therapy; Z79.1 Long term (current) use of non-steroidal anti-inflammatories (NSAID); Z79.2 Long term (current) use of antibiotics
CPT/HCPCS: 36415; 71045; 80053; 83880; 84484; 85025; 85610; 85730; 93005; 99285

== ENCOUNTER 2023-07-09 07:51 | Emergency (ER) | payer OTHER ==
[~2023-07-09] VITALS: Ht 170.2 cm; Wt 95.3 kg
[2023-07-09 07:53] VITALS: BP 145/97; PULSE 70; RESP 15; TEMP 97.8; O2SAT 99
[2023-07-09] MEDS ORDERED: BROM118S70 PO ×2 (08:43→08:58)
[2023-07-09] MEDS ORDERED: PRED50TA2 PO ×2 (08:43→08:58)
[2023-07-09] MEDS ORDERED: AMOX500C25 PO ×2 (08:43→08:58)
[2023-07-09] MEDS ORDERED: BENZ-300 PO ×2 (08:43→08:58)
== END 2023-07-09 08:58 | disposition home or self-care (01) ==
LOC: MED 07:51
DX: H66.91 Otitis media, unspecified, right ear (principal); J02.8 Acute pharyngitis due to other specified organisms; B97.89 Other viral agents as the cause of diseases classified elsewhere; Z79.899 Other long term (current) drug therapy; Z79.2 Long term (current) use of antibiotics; Z79.1 Long term (current) use of non-steroidal anti-inflammatories (NSAID)
CPT/HCPCS: 99283

== ENCOUNTER 2024-04-29 12:29 | Emergency (ER) | payer OTHER ==
[~2024-04-29] VITALS: Ht 170.2 cm; Wt 101.7 kg
[~2024-04-29 12:29] MED LIST changes: -ACET-10509 PO; +ACET500T99 PO; +BENZ-300 PO; +BROM118S70 PO; +NAPR-337 PO; -NAPR-54 PO; +PRED50TA2 PO
[2024-04-29 13:00] VITALS: BP 159/101; PULSE 95; RESP 20; TEMP 98.4; O2SAT 98
[2024-04-29] MEDS: IBUPROFEN 600 MG TAB PO ONE (13:57)
[2024-04-29] MEDS ORDERED: IBUP-2213 PO (13:57)
[2024-04-29] MEDS ORDERED: AMOX500C25 PO (13:57)
[2024-04-29 14:06] LABS: FLU A ANTIGEN negative (NEGATIVE); FLU B ANTIGEN negative (NEGATIVE)
[2024-04-29 14:14] VITALS: BP 148/88; PULSE 94; RESP 20; TEMP 98.7; O2SAT 99
== END 2024-04-29 14:14 | disposition home or self-care (01) ==
LOC: MED 12:29
DX: U07.1 COVID-19 (principal); H66.92 Otitis media, unspecified, left ear; Z79.899 Other long term (current) drug therapy
CPT/HCPCS: 99283